=== PATIENT | female | born 1990 | race Caucasian/White ===

== ENCOUNTER 2016-12-27 22:40 | Emergency (ER) | payer OTHER ==
[2016-12-27 22:59] VITALS: BP 120/71; PULSE 77; RESP 20; TEMP 97.8; O2SAT 100
--- NOTE | 2016-12-27 23:24 | C.PDOC ---
History Of Present Illness 26 y/o female presents to ED with complaint of right earache. Patient denies ear discharge, trauma, fever, headache, or dizziness. Time Seen by Provider: 12/27/16 23:01 Chief Complaint (Nursing): ENT Problem History Per: Patient History/Exam Limitations: None Current Symptoms Are (Timing): Still Present Past Medical History Reviewed: Historical Data, Nursing Documentation, Vital Signs Vital Signs: Last Vital Signs Temp 97.8 F 12/27/16 22:49 Pulse 77 12/27/16 22:49 Resp 20 12/27/16 22:49 BP 120/71 12/27/16 22:49 Pulse Ox 100 12/28/16 00:39 - Medical History PMH: No Chronic Diseases Surgical History: Family History: States: Unknown Family Hx - Social History Hx Tobacco Use: No Hx Alcohol Use: No Hx Substance Use: No Review Of Systems Except As Marked, All Systems Reviewed And Found Negative. Constitutional: Negative for: Fever, Chills ENT: Positive for: Ear Pain. Negative for: Ear Discharge Respiratory: Negative for: Cough, Shortness of Breath, Wheezing Gastrointestinal: Negative for: Nausea, Vomiting Musculoskeletal: Negative for: Neck Pain Skin: Negative for: Rash Neurological: Negative for: Headache, Dizziness Physical Exam - Physical Exam Appears: Non-toxic, No Acute Distress Skin: Normal Color, Warm, Dry Head: Atraumatic, Normacephalic Eye(s): bilateral: Normal Inspection, PERRL, EOMI Ear(s): Left: Normal, Other ((+) tragal tenderness RT, (+) erythema of rt ear canal. TM normal. ), Right: Other Nose: Normal Oral Mucosa: Moist Throat: Normal, No Erythema, No Exudate, No Drooling Neck: Supple Chest: Symmetrical Cardiovascular: Rhythm Regular, No Murmur Respiratory: Normal Breath Sounds, No Rales, No Rhonchi, No Wheezing Back: Normal Inspection Extremity: Normal ROM, Capillary Refill (< 2 sec. ) Neurological/Psych: Oriented x3, Normal Speech, Normal Cognition Gait: Steady ED Course And Treatment O2 Sat by Pulse Oximetry: 100 (RA) Pulse Ox Interpretation: Normal Progress Note: Treated with Motrin. On reassessment, patient is resting comfortably, and is in no acute distress. Patient instructed to take medications as directed and to follow up with clinic within 1-2 days for further evaluation. Disposition Counseled Patient/Family Regarding: Diagnosis, Need For Followup, Rx Given - Disposition Referrals: at [facility] [Outside] Disposition: HOME/ ROUTINE Disposition Time: 23:23 Condition: GOOD Additional Instructions: Increase PO fluids Take meds as directed Return to ER if worse Prescriptions: Neomycin/Polymyxin/Hydrocortis [Cortisporin Otic Susp] 3 - 5 drop AU TID #1 bottle Ibuprofen [Motrin] 600 mg PO Q6H #30 tab Instructions: Otitis Externa (ED) Forms: Work Excuse Print Language: KOREAN - Clinical Impression Clinical Impression: Otitis externa - PA / DECKHAND / Resident Statement MD/DO has reviewed & agrees with the documentation as recorded. - Scribe Statement The provider has reviewed the documentation as recorded by the Shayne Briceño Provider Scribe Attestation: All medical record entries made by the Scribe were at my direction and personally dictated by me. I have reviewed the chart and agree that the record accurately reflects my personal performance of the history, physical exam, medical decision making, and the department course for this patient. I have also personally directed, reviewed, and agree with the discharge instructions and disposition.
== END 2016-12-27 23:35 | disposition home or self-care (01) ==
LOC: C.ER 22:40
DX: H60.91 Unspecified otitis externa, right ear (principal)

== ENCOUNTER 2017-02-19 16:24 | Emergency (ER) | payer OTHER ==
[2017-02-19 16:29] VITALS: BMI 26.6
[2017-02-19 16:31] VITALS: BP 121/85; PULSE 90; RESP 20; TEMP 98.3; O2SAT 100
== END 2017-02-19 16:29 | disposition left against medical advice (07) ==
LOC: C.ER 16:24
DX: R10.13 Epigastric pain (principal); Z02.9 Encounter for administrative examinations, unspecified

== ENCOUNTER 2018-03-08 18:53 | Emergency (ER) | payer OTHER ==
[2018-03-08 18:54] VITALS: BMI 26.6
[2018-03-08 19:07] VITALS: O2SAT 100
[2018-03-08 19:32] LABS: HCG,QUALITATIVE URINE NEGATIVE (NEGATIVE)
[2018-03-08 19:33] LABS: SQUAMOUS EPITHIAL 5 /hpf (0-5); URINE BACTERIA RARE (<OCC); URINE BILIRUBIN NEGATIVE (NEGATIVE); URINE BLOOD NEGATIVE (NEGATIVE); URINE CLARITY Clear (Clear); URINE COLOR Straw (YELLOW); URINE GLUCOSE (UA) NORMAL (Normal); URINE LEUKOCYTE ESTERASE 1+ Leu/uL (Negative); URINE PROTEIN NEGATIVE (NEGATIVE); URINE UROBILINOGEN NORMAL mg/dL (0.2-1.0)
[2018-03-08] MEDS ORDERED: Sodium Chloride 0.9% 1,000 ML IV ONE (19:34)
[2018-03-08] MEDS ORDERED: Sodium Chloride 0.9% 1,000 ML ONE (19:41)
[2018-03-08 19:44] LABS: BASO # 0.1 K/uL (0.0-0.2); BASO % 0.9 % (0.0-2.0); EOS # 0.1 K/uL (0.0-0.7); EOS % 1.3 % (0.0-4.0); HEMOGLOBIN 14.5 g/dL (11.0-16.0); LYMPH # 2.8 K/uL (1.0-4.3); LYMPH % 45.1 % (20.0-40.0); MEAN CELL VOLUME 93.4 fL (81.0-99.0); MEAN CORPUSCULAR HEMOGLOBIN 31.8 pg (27.0-31.0); MEAN CORPUSCULAR HGB CONC 34.1 g/dL (33.0-37.0); MEAN PLATELET VOLUME 11.3 fL (7.2-11.7); MONO # 0.7 K/uL (0.0-0.8); MONO % 10.6 % (0.0-10.0); NEUT # 2.6 K/uL (1.8-7.0); NEUT % 42.1 % (50.0-75.0); NRBC % 0.1 % (0.0-2.0); RBC 4.57 Mil/uL (3.80-5.20); RED CELL DISTRIBUTION WIDTH 12.4 % (11.5-14.5); WHITE BLOOD COUNT 6.3 K/uL (4.8-10.8)
[2018-03-08 19:58] LABS: ALB/GLOB RATIO 1.1 (1.0-2.1); ALBUMIN 4.6 g/dL (3.5-5.0); ALT/SGPT 41 U/L (9-52); AST/SGOT 31 U/L (14-36); BLOOD UREA NITROGEN 11 mg/dL (7-17); CALCIUM 9.6 mg/dl (8.6-10.4); GFR AFRICAN-AMERICAN > 60; GFR NON-AFRICAN AMERICAN > 60; LIPASE 66 U/L (23-300)
--- NOTE | 2018-03-08 20:01 | C.PDOC ---
History Of Present Illness 27-year-old female, presents to the emergency department with complaints of nausea ongoing for the past few days. She denies any abdominal pain, fever, vomiting, chest pain, back pain, symptoms, diarrhea, or any other associated symptoms. No other complaints at this time. Chief Complaint (Nursing): GI Problem History Per: Patient History/Exam Limitations: no limitations Current Symptoms Are (Timing): Still Present Severity: Moderate Past Medical History Reviewed: Historical Data, Nursing Documentation, Vital Signs Vital Signs: Last Vital Signs Temp 98.4 F 03/08/18 20:12 Pulse 92 H 03/08/18 20:12 Resp 16 03/08/18 20:12 BP 140/86 03/08/18 20:12 Pulse Ox 100 03/08/18 20:14 Surgical History: Family History: States: No Known Family Hx - Social History Hx Tobacco Use: No Hx Alcohol Use: Yes Hx Substance Use: No - Immunization History Hx Tetanus Toxoid Vaccination: Yes Hx Influenza Vaccination: No Hx Pneumococcal Vaccination: No Review Of Systems Constitutional: Negative for: Fever, Chills Cardiovascular: Negative for: Chest Pain, Palpitations Respiratory: Negative for: Cough, Shortness of Breath Gastrointestinal: Positive for: Nausea. Negative for: Vomiting, Abdominal Pain Genitourinary: Negative for: Dysuria, Hematuria, Vaginal Discharge, Vaginal Bleeding Musculoskeletal: Negative for: Back Pain Neurological: Negative for: Weakness, Numbness, Headache, Dizziness Physical Exam - Physical Exam Appears: Non-toxic, No Acute Distress Skin: Normal Color, Warm, Dry, No Rash Head: Atraumatic, Normacephalic Eye(s): bilateral: Normal Inspection, PERRL, EOMI Nose: Normal Oral Mucosa: Moist Lips: Normal Appearing Neck: Normal ROM Cardiovascular: Rhythm Regular, No Murmur Respiratory: Normal Breath Sounds, No Accessory Muscle Use Gastrointestinal/Abdominal: Soft, No Tenderness Back: Normal Inspection Extremity: Normal ROM, No Deformity, No Swelling Neurological/Psych: Oriented x3, Normal Speech ED Course And Treatment - Laboratory Results Result Diagrams: 03/08/18 19:30 03/08/18 19:30 O2 Sat by Pulse Oximetry: 100 (RA) Pulse Ox Interpretation: Normal Disposition - Disposition Referrals: [facility] [Outside] [facility] [Outside] Disposition: HOME/ ROUTINE Disposition Time: 20:10 Condition: GOOD Additional Instructions: CHANDRA ALMENDAREZ, thank you for letting us take care of you today. Your provider was Prem Bryant DO. The emergency medical care you received today was directed at your acute symptoms. If you were prescribed any medication , please fill it and take as directed. It may take several days for your symptoms to resolve. Return to the Emergency Department if your symptoms worsen , do not improve, or if you have any other problems. Please contact your doctor or call one of the physicians/clinics you have been referred to that are listed on the Patient Visit Information form that is included in your discharge packet. Bring any paperwork you were given at discharge with you along with any medications you are taking to your follow up visit. Our treatment cannot replace ongoing medical care by a primary care provider outside of the emergency department. Thank you for allowing the [facility] team to be part of your care today. Follow up with the clinic for outpatient care. CHANDRA ALMENDAREZ, annalisa por dejarnos atenderlo francis. Estrella proveedor fue Prem Bryant DO. La atencin mdica de emergencia que recibi hoy estaba dirigida a trinidad sntomas agudos. Si le prescribieron algn medicamento, llnelo y tome segn las indicaciones. [place] s[place]omas pueden tardar varios andrade en resolverse. Regrese al Departamento de Emergencia si trinidad sntomas empeoran, no mejoran o si tiene algn otro problema. Comunquese con estrella mdico o llame a ben de los mdicos / clnicas a los que de la o sido referido que figura en el formulario de Informacin de visita del paciente que se incluye en estrella paquete de joe. Traiga todos los documentos que recibi al momento del joe junto con los medicamentos que est tomando en estrella visita de seguimiento. Nuestro tratamiento no puede reemplazar la atencin mdica en curso por un proveedor de atencin primaria fuera del departamento de emergencia. Annalisa por permitir que el equipo de [facility] sea parte de estrella cuidado hoy. Lincoln un seguimiento con la clnica para atencin ambulatoria. Instructions: Nausea and Vomiting, Adult (DC) Forms: Gen Discharge Inst Citizen Of [place], ZBD Displays (Citizen [place]) Print Language: FRISIAN - Clinical Impression Clinical Impression: Nausea - Scribe Statement The provider has reviewed the documentation as recorded by the Scribe (Malaika Contreras) All medical record entries made by the Scribe were at my direction and personally dictated by me. I have reviewed the chart and agree that the record accurately reflects my personal performance of the history, physical exam, medical decision making, and the department course for this patient. I have also personally directed, reviewed, and agree with the discharge instructions and disposition.
[2018-03-08 20:12] VITALS: BP 140/86; PULSE 92; RESP 16; TEMP 98.4
== END 2018-03-08 20:17 | disposition home or self-care (01) ==
LOC: C.ER 18:53
DX: R11.0 Nausea (principal)
CPT/HCPCS: 80053; 81001; 83690; 84703; 85025; 99285; J7030

== ENCOUNTER 2018-12-16 18:00 | Emergency (ER) | payer OTHER ==
[2018-12-16 18:00] VITALS: BMI 26.6
== END 2018-12-16 18:50 | disposition left against medical advice (07) ==
LOC: C.ER 18:00
DX: Z02.89 Encounter for other administrative examinations (principal)